=== PATIENT | female | born 1930 | race Caucasian/White ===

== ENCOUNTER 2016-08-17 11:04 | Emergency (ER) | payer MEDICARE, BC ==
[2016-08-17] MEDS ORDERED: SODIUM CHLORIDE 0.9% 1,000 ML ONE (12:18)
== END 2016-08-17 18:18 | disposition home or self-care (01) ==
LOC: ER 11:04
CPT/HCPCS: 36415; 70450; 71010; 80053; 81001; 82550; 82553; 84484; 85025; 85610; 85730; 93005; 96360